=== PATIENT | female | born 1975 | race Caucasian/White ===

== ENCOUNTER → 2016-07-24 | Outpatient (CLI) | payer OTHER ==
[~2016-07-24] MED LIST: AUGMENTIN 500 M1 TAB PO; HYDROCODONE-APA1 TA1 PO; SYNTHROID 0.00.05 MG PO
[2016-07-24 12:38] LABS: LYMPH # 0.3 K/mm3 (0.7-4.5); LYMPH % 2.6 % (10-50.0)
[2016-07-24 12:40] LABS: HEMOGLOBIN 15.1 g/dL (12.2-16.2)
[2016-07-24 13:31] LABS: NEUTROPHILS 95 % (42-76)
[2016-07-24 14:15] LABS: BUN 16 mg/dL (7-18); GFR (ESTIMATED) 79 ML/MIN (59-)
[2016-07-24 15:00] VITALS: BP 99/59
== END ==
LOC: LAB 11:20 → COP 11:20
PROVIDERS: Internal Medicine Adolescent Medicine
DX: T62.91XA Toxic effect of unspecified noxious substance eaten as food, accidental (unintentional), initial encounter (principal)

== ENCOUNTER → 2017-03-10 | Outpatient (CLI) | payer OTHER ==
[2017-03-10 12:32] LABS: LYMPH # 1.6 K/mm3 (0.7-4.5); LYMPH % 28.1 % (10-50.0)
[2017-03-10 12:55] LABS: BUN 10 mg/dL (7-18)
[2017-03-10 12:58] LABS: GFR (ESTIMATED) 69 ML/MIN (59-)
== END ==
LOC: LAB 10:03
PROVIDERS: Internal Medicine Adolescent Medicine
DX: E03.9 Hypothyroidism, unspecified (principal); E53.8 Deficiency of other specified B group vitamins; Z00.00 Encounter for general adult medical examination without abnormal findings

== ENCOUNTER → 2017-05-30 | Outpatient (CLI) | payer OTHER ==
[2017-05-30 10:43] LABS: CORONAVIRUS 229E NOT DETECTED (NOT DETECTE); CORONAVIRUS HKU 1 NOT DETECTED (NOT DETECTE); CORONAVIRUS NL63 NOT DETECTED (NOT DETECTE); CORONAVIRUS OC43 NOT DETECTED (NOT DETECTE); RHINOVIRUS/ENTEROVIRUS NOT DETECTED (NOT DETECTE)
== END ==
LOC: LAB 10:42
PROVIDERS: Internal Medicine Adolescent Medicine
DX: R50.9 Fever, unspecified (principal)